=== PATIENT | female | born 1970 | race Caucasian/White ===

== ENCOUNTER 2016-10-01 02:32 | Emergency (ER) | payer MEDICAID ==
[~2016-10-01] VITALS: Ht 162.6 cm; Wt 55.2 kg
[~2016-10-01 02:32] MED LIST: AZIT500T77 PO; CEFD300C37 PO; NICO1PAT4 TD; TRAM50TA2 PO
[2016-10-01] MEDS ORDERED: IBUPROFEN 200 MG TABLET PO ONE (03:00)
[2016-10-01 03:21] VITALS: BP 142/95
[2016-10-01] MEDS ORDERED: IBUPROFEN 200 MG TABLET ONE (03:22)
== END 2016-10-01 04:20 | disposition home or self-care (01) ==
LOC: ED 04:08
DX: S50.11XA Contusion of right forearm, initial encounter (principal); Z72.9 Problem related to lifestyle, unspecified; F19.10 Other psychoactive substance abuse, uncomplicated; W01.0XXA Fall on same level from slipping, tripping and stumbling without subsequent striking against object, initial encounter; Y93.89 Activity, other specified; Y99.8 Other external cause status; Y92.488 Other paved roadways as the place of occurrence of the external cause
CPT/HCPCS: 99284

== ENCOUNTER 2018-03-09 05:52 | Emergency (ER) | payer MEDICAID ==
[~2018-03-09] VITALS: Ht 162.6 cm; Wt 59.6 kg
[~2018-03-09 05:52] MED LIST changes: +AZIT500T5 PO; -AZIT500T77 PO; +NICO-486 TD; -NICO1PAT4 TD
[2018-03-09 05:57] VITALS: BP 145/91
--- NOTE | 2018-03-09 06:04 | NUR ---
PT WITH ABCESS TO UPPER LEFT JAW X 2 DAYS
[2018-03-09] MEDS ORDERED: HYDROcodone/APAP 5/325 TABLET ONE (06:22)
[2018-03-09] MEDS ORDERED: IBUPROFEN 600 MG TABLET ONE (06:22)
--- NOTE | 2018-03-09 06:26 | NUR ---
medicated for pain at this time
[2018-03-09] MEDS ORDERED: HYDROcodone/APAP 5/325 TABLET PO ONE (06:30)
[2018-03-09] MEDS ORDERED: IBUPROFEN 200 MG TABLET PO ONE (06:30)
--- NOTE | 2018-03-09 06:55 | NUR ---
received report from Chloe. pt laying on gurney with eyes closed, responds approp to staff, NAD, comfort measures provided, call light within reach.
[2018-03-09] MEDS ORDERED: BICILLIN-LA 1,200,000 UNITS/2 ML IM ONE (08:00)
--- NOTE | 2018-03-09 08:30 | NUR ---
Patient given discharge instructions and Rx, they have confirmed that they understand the instructions. Patient ambulatory with steady gait.
== END 2018-03-09 08:30 | disposition home or self-care (01) ==
LOC: ED 07:17
DX: K02.9 Dental caries, unspecified (principal); F17.200 Nicotine dependence, unspecified, uncomplicated
CPT/HCPCS: 70486; 96372; 99284; J0561